=== PATIENT | female | born 1990 | race Caucasian/White ===

== ENCOUNTER 2018-11-25 10:15 | Inpatient (IN) | payer BC ==
[~2018-11-25 10:15] MED LIST: Bupivacaine 0.25% HCL 30 ML VIAL ONE; Bupivacaine/Epinephrine 0.25% 30 ML VIAL ONE; Lidocaine 2% MPF 10 ML AMP (For Epidural Use) ONE
[2018-11-25 11:01] VITALS: BMI 39.4
[2018-11-25] MEDS ORDERED: Butorphanol Tartrate 1 MG/ML VIAL SLOW IVP PRN (11:12)
[2018-11-25] MEDS ORDERED: Ondansetron PF 4 MG/2 ML Vial IVP PRN ×2 (11:12→16:10)
[2018-11-25] MEDS ORDERED: Docusate 100 MG CAP PO PRN (11:12)
[2018-11-25] MEDS ORDERED: NS / Oxytocin 40 units/1000ml 1,000 ML IV PRN (11:12)
[2018-11-25] MEDS ORDERED: Promethazine HCl 25 MG/ML VIAL IM PRN ×2 (11:12→16:10)
[2018-11-25] MEDS ORDERED: Acetaminophen 500 MG TAB PO PRN (11:12)
[2018-11-25] MEDS ORDERED: NS w/ Oxytocin 10 units 500 ML IV SCH ×2 (11:15)
[2018-11-25] MEDS: Lactated Ringer's 1,000 ML IV SCH ×3 (11:18→22:39)
[2018-11-25] MEDS ORDERED: HYDROcodone/Acetaminophen 5/325 mg Tablet PO PRN ×2 (11:30)
[2018-11-25] MEDS ORDERED: Lidocaine 1% (PF) 30 ML VIAL SC PRN (11:30)
[2018-11-25] MEDS ORDERED: Ibuprofen 800 MG TAB PO PRN (11:30)
[2018-11-25] MEDS ORDERED: Misoprostol 200 MCG TAB PR PRN (11:30)
[2018-11-25] MEDS ORDERED: Meperidine HCl/PF 25 MG/ML VIAL IM/IV PRN (11:30)
[2018-11-25 11:39] LABS: Hemoglobin 12.3 g/dL (12.0-16.0); Mean Corpuscular HGB CONC 33.3 g/dL (32.0-36.0); Mean Corpuscular Hemoglobin 28.6 pg (27.0-31.0); Mean Corpuscular Volume 85.9 fL (78.0-98.0); Mean Platelet Volume 8.3 fL (7.4-10.4); Platelet Count 279 thou/uL (130-400); RBC Distribution Width 15.1 % (11.5-14.5); White Blood Cell (WBC) Count 10.6 thou/uL (4.8-10.8)
[2018-11-25] MEDS ORDERED: NS w/ Oxytocin 10 units 500 ML ONE (11:45)
[2018-11-25 12:21] LABS: HBSAg Index 0.34 S/CO (0-0.99); Hep B Surf Ag Non-Reactive S/CO (NonReactive); Syphilis Antibody Nonreactive (Nonreactive); Syphilis Antibody Index 0.05 S/CO (<1.00 Non-Reactive)
[2018-11-25] MEDS ORDERED: Lidocaine 1.5%/Epinephrine 1:200,000 5 ML AMPUL IJ ONE (13:09)
[2018-11-25] MEDS ORDERED: Fentanyl 4 mcg/Bup 0.1% Cadd 100 ML ONE ×2 (13:10→19:50)
[2018-11-25] MEDS ORDERED: ePHEDrine/0.9% NaCl/PF SYRINGE 50 mg/10 ml SLOW IVP PRN (16:10)
[2018-11-25] MEDS ORDERED: Lactated Ringer's 500 ML IV PRN (16:10)
[2018-11-25] MEDS ORDERED: Eucerin (Mineral Oil/Petrolatum,White) 30 gm Jar TOP PRN (16:10)
[2018-11-25] MEDS ORDERED: diphenhydrAMINE 50 MG/ML VIAL IVP PRN (16:10)
[2018-11-25] MEDS ORDERED: Naloxone HCl 0.4 mg/ml Vial IVP PRN ×2 (16:10)
[2018-11-25] MEDS ORDERED: Acetaminophen 325 MG TAB PO PRN (16:10)
[2018-11-25] MEDS ORDERED: Dexamethasone 20 MG/5 ML VIAL ONE (16:15)
[2018-11-25] MEDS ORDERED: Ondansetron PF 4 MG/2 ML Vial ONE ×2 (16:15→22:52)
[2018-11-25] MEDS ORDERED: Succinylcholine Chloride 20 MG/ML 10 ml SYRINGE FS ONE ×2 (16:15→22:52)
[2018-11-25] MEDS ORDERED: Ketorolac Tromethamine 30 MG/ML VIAL ONE ×2 (16:15→22:52)
[2018-11-25] MEDS ORDERED: ePHEDrine 50 MG/ML VIAL ONE (16:15)
[2018-11-25] MEDS ORDERED: PROPOFOL 200 MG/20 ML VIAL ONE (16:15)
[2018-11-25] MEDS ORDERED: Fentanyl 4 mcg/Bupivacaine 0.1% Cassette 100 ML EPIDURAL SCH (16:15)
[2018-11-25] MEDS ORDERED: Communication Order-Pharmacy FS SCH (16:15)
[2018-11-25] MEDS ORDERED: Bicitra 30 ML UDCUP ONE (22:30)
[2018-11-25] MEDS ORDERED: Lidocaine 2% 10 ML INJ ONE ×2 (22:32→22:52)
[2018-11-25] MEDS ORDERED: Fentanyl 100 MCG/2 ML VIAL ONE (22:52)
[2018-11-25] MEDS ORDERED: Dexamethasone 4 mg/ml Vial ONE (22:52)
[2018-11-25] MEDS ORDERED: PROPOFOL 20 ML ONE (22:52)
[2018-11-25] MEDS ORDERED: Oxytocin 10 UNITS/ML VIAL ONE ×2 (23:08→23:48)
[2018-11-25] MEDS ORDERED: MORPHINE ONE (23:15)
[2018-11-25] MEDS ORDERED: MORPHINE 5 MG/10 ML PF VIAL ONE (23:15)
[2018-11-25 23:21] LABS: Actual Bicarbonate (HCO3a) 25.2 mEq/L (22-28)
[2018-11-25 23:23] LABS: Actual Bicarbonate (HCO3v) 24 mEq/L (22-28); Base Excess -3.8 mEq/L (-2.0 to +3.0); pH (Cord, venous) 7.28 (7.32-7.43)
[2018-11-25] MEDS ORDERED: Methylergonovine 0.2 MG/ML VIAL ONE (23:24)
[2018-11-25] MEDS ORDERED: ePHEDrine/0.9% NaCl/PF SYRINGE 50 mg/10 ml ONE (23:27)
[2018-11-26] MEDS ORDERED: Eucerin (Mineral Oil/Petrolatum,White) 30 gm Jar TOP PRN (00:05)
[2018-11-26] MEDS ORDERED: diphenhydrAMINE 50 MG/ML VIAL IVP PRN ×2 (00:05)
[2018-11-26] MEDS ORDERED: L&D-Morphine 4 MG/ML VIAL SLOW IVP PRN (00:05)
[2018-11-26] MEDS ORDERED: Naloxone HCl 0.4 mg/ml Vial IVP PRN ×2 (00:05)
[2018-11-26] MEDS ORDERED: diphenhydrAMINE 50 MG/ML VIAL IM PRN (00:05)
[2018-11-26] MEDS ORDERED: Morphine CADD 1 MG/ML CADD IVPB PRN (00:05)
[2018-11-26] MEDS ORDERED: HYDROmorphone 2 MG/ML VIAL SLOW IVP PRN (00:05)
[2018-11-26] MEDS ORDERED: Ondansetron PF 4 MG/2 ML Vial IVP PRN ×3 (00:05→00:38)
[2018-11-26] MEDS ORDERED: diphenhydrAMINE 25 MG CAP PO PRN ×2 (00:05→00:38)
[2018-11-26] MEDS ORDERED: Promethazine HCl 25 MG SUPP PR PRN (00:05)
[2018-11-26] MEDS ORDERED: Zolpidem Tartrate 5 MG TAB PO PRN ×3 (00:05→00:51)
[2018-11-26] MEDS ORDERED: Ondansetron HCl/PF 4 MG/2 ML Vial IVP PRN (00:05)
[2018-11-26] MEDS ORDERED: Promethazine HCl 25 MG/ML VIAL IM PRN ×2 (00:05)
[2018-11-26] MEDS ORDERED: Naloxone HCl 0.4 mg/ml Vial IV PRN ×2 (00:05)
[2018-11-26] MEDS ORDERED: Meperidine HCl/PF 25 MG/ML VIAL SLOW IVP PRN (00:05)
[2018-11-26] MEDS ORDERED: Communication Order-Pharmacy FS SCH ×2 (00:15)
[2018-11-26] MEDS ORDERED: Bisacodyl 10 MG SUPP PR PRN (00:38)
[2018-11-26] MEDS ORDERED: Lanolin Ointment 7 GM TUBE TOP PRN (00:38)
[2018-11-26] MEDS ORDERED: Simethicone Chewable 80 MG TAB PO PRN (00:38)
[2018-11-26] MEDS ORDERED: HYDROcodone/Acetaminophen 5/325 mg Tablet PO PRN ×2 (00:38)
[2018-11-26] MEDS ORDERED: Misoprostol 200 MCG TAB PR PRN (00:38)
[2018-11-26] MEDS ORDERED: NS / Oxytocin 40 units/1000ml 1,000 ML IV SCH (00:45)
[2018-11-26] MEDS ORDERED: Lactated Ringer's 1,000 ML IV SCH (00:45)
[2018-11-26] MEDS: Ketorolac Tromethamine 30 MG/ML VIAL IVP PRN ×4 (01:41→19:25)
[2018-11-26] MEDS ORDERED: Methylergonovine 0.2 MG/ML VIAL IM SCH (02:30)
[2018-11-26] MEDS: Acetaminophen 325 MG TAB PO PRN (04:41)
[2018-11-26 07:55] LABS: Hemoglobin 10.1 g/dL (12.0-16.0); Mean Corpuscular HGB CONC 32.4 g/dL (32.0-36.0); Mean Corpuscular Hemoglobin 27.5 pg (27.0-31.0); Mean Corpuscular Volume 84.7 fL (78.0-98.0); Mean Platelet Volume 8.2 fL (7.4-10.4); Platelet Count 270 thou/uL (130-400); RBC Distribution Width 14.8 % (11.5-14.5); Red Blood Cell (RBC) Count 3.69 mill/uL (4.20-5.40); White Blood Cell (WBC) Count 18.1 thou/uL (4.8-10.8)
[2018-11-26] MEDS: Prenatal Vitamin 1 TAB PO SCH (08:52)
[2018-11-26] MEDS: Ferrous Sulfate 325 MG TAB PO SCH ×2 (08:53→21:13)
[2018-11-26] MEDS: Docusate Calcium (SURFAK) 240 MG CAP PO SCH ×2 (08:53→20:42)
[2018-11-26] MEDS ORDERED: Adacel (T-DAP) 0.5 ML SYRINGE IM ONE (09:00)
[2018-11-26] MEDS ORDERED: Sodium Chloride 0.9% 10 ML ONE ×3 (11:39→19:20)
[2018-11-26] MEDS: HYDROcodone/Acetaminophen 5/325 mg Tablet PO PRN ×3 (12:13→22:22)
[2018-11-27] MEDS: Ketorolac Tromethamine 30 MG/ML VIAL IVP PRN (00:56)
[2018-11-27] MEDS: Acetaminophen 325 MG TAB PO PRN (01:07)
[2018-11-27] MEDS: Ibuprofen 800 MG TAB PO SCH ×3 (05:45→22:09)
[2018-11-27] MEDS: Ferrous Sulfate 325 MG TAB PO SCH ×2 (07:30→19:43)
[2018-11-27] MEDS: Prenatal Vitamin 1 TAB PO SCH (08:53)
[2018-11-27] MEDS: Docusate Calcium (SURFAK) 240 MG CAP PO SCH ×2 (08:54→22:09)
[2018-11-27] MEDS: HYDROcodone/Acetaminophen 5/325 mg Tablet PO PRN ×2 (08:54→18:03)
[2018-11-28] MEDS: HYDROcodone/Acetaminophen 5/325 mg Tablet PO PRN ×2 (03:57→13:40)
[2018-11-28] MEDS: Ibuprofen 800 MG TAB PO SCH ×2 (06:25→13:39)
[2018-11-28] MEDS: Docusate Calcium (SURFAK) 240 MG CAP PO SCH (09:07)
[2018-11-28] MEDS: Prenatal Vitamin 1 TAB PO SCH (09:07)
[2018-11-28] MEDS: Ferrous Sulfate 325 MG TAB PO SCH (09:08)
[2018-11-28 09:24] VITALS: BP 112/65; TEMP 98.4
--- NOTE | 2018-11-28 19:21 | OP ---
DATE OF PROCEDURE: 11/26/2018 RESIDENT SURGEON: Shilpa Saenz DO. PREOPERATIVE DIAGNOSES: 1. Term intrauterine at 38 and 11/29's. 2. Arrest of descent. 3. Nonreassuring heart rate tracing. POSTOPERATIVE DIAGNOSES: 1. Term intrauterine at months. 2. Arrest of descent. 3. Nonreassuring heart rate tracing. 4. Cephalopelvic disproportion. PROCEDURE PERFORMED: Primary low transverse section. ANESTHESIA: 1. Epidural. 2. General endotracheal. FINDINGS: 1. Arrest of descent at +3 station with a minimal descent during a trial of vacuum. 2. Nonreassuring heart rate tracing with repetitive decelerations. 3. A vigorous male infant, 8 pounds 8 ounces, Apgars 8 and 9. 4. Normal uterus, tubes, and ovaries. 5. Cephalopelvic disproportion (CPD) with a narrow outlet, deep subpubic arch, prominent sacrum. COMPLICATIONS: None. SPECIMENS REMOVED: 1. Cord blood. 2. Cord gas. BLOOD LOSS: 800 to 900 mL. (QBL 335). HISTORY AND INDICATIONS: Ms. Sienna Wolf is a very pleasant, 27-year-old, white female, G1, P0, who presented to our office on the morning of 11/25/2018, for routine visit at 38 and 11/29's. She complained of clear discharge. She had SROM during examination, and Nitrazine was positive. She was sent to Labor and Delivery in early labor. At the time of admission, her cervix was noted to be 4 cm dilated, 80% effaced, and -2 station. She was started on Pitocin augmentation. She progressed throughout the afternoon and early evening to 8 cm dilation. She had slow progress from 8 cm to complete. On the evening of 11/25/2018, she subsequently progressed to complete dilation, complete effacement, and +2 to 3 station. She pushed for well over an hour. The baby was noted to be asynclitic in presentation. We discussed the possibility of a trial of vacuum-assisted vaginal delivery. The patient and her were counseled and consented, they agreed. At this point, she was beginning to notice significant pelvic and low back discomfort. I carefully applied the vacuum for an attempt at a low VAVD. We attempted with a pressure of 50 cm with 2 pushes, and there was no descent. After 2 contractions and 2 pushes, I did not feel like it was safe for the baby to continue an attempt at an operative delivery. We made a decision to proceed with primary . Surgical disclosures were signed and placed in the chart. Questions were answered to the patient and family's satisfaction. The patient continued to have significant discomfort with her epidural. She was taken to the back for primary as outlined. DESCRIPTION OF PROCEDURE: After consent and counseling and the patient was taken to the back, the nurse notified me that general anesthetic had been induced. This was performed with us not being in the room or scrubbed. No time-out was performed. Urgently, the patient was prepped and draped in usual sterile fashion for abdominal surgery. A Mustafa was already placed and noted to be draining clear urine. A Pfannenstiel incision was made and carried sharply to the fascia, which was also sharply incised. The midline was identified, and the rectus muscles were retracted laterally. The abdominoperitoneal cavity was entered with usual safeguards carried out. A retractor was placed, and a bladder flap was created on the vesicouterine peritoneum. A bladder blade was then placed. A low-transverse incision was made on the well-developed lower uterine segment. Upon entering the amniotic sac, a small amount of clear amniotic fluid was visualized. The infant was noted to be vertex presentation in the right occiput anterior position (VAHID). There were significant caput and molding noted. The head was disengaged from the pelvis. The head was then carefully delivered in an atraumatic fashion. Baby was bulb suctioned on the abdomen. Shoulders and body were then delivered in an atraumatic fashion. The cord was doubly clamped and cut. The was immediately handed to the Neonatology Team in attendance for the delivery. Time from incision to cord clamp and cut was approximately 60 seconds. The infant was a vigorous viable male weighing 8 pounds 8 ounces with Apgars of 8 and 9 obtained at one and five minutes respectively. Cord blood gas was obtained. The placenta was manually removed from the uterus. The uterus was exteriorized, and poor tone was noted. Vigorous manual massage was performed. The patient was also given a dose of Methergine to aid with tone and hemostasis. The low-transverse incision was closed with a running locking ligature of #1 chromic. A second imbricating layer was placed to facilitate strength and hemostasis. During closure, vigorous massage was continued. Good hemostasis was then obtained. The vesicouterine peritoneum was reapproximated to the lower segment for adhesion prevention. The vesicouterine peritoneum was reapproximated with a running ligature of 2-0 Monocryl suture. The incision was carefully inspected, and good hemostasis was noted. The posterior cul-de-sac and gutters were cleared of clot and fluid. The pelvis was carefully inspected after closure. The sacrum was noted to be extremely prominent with a narrow anterior-posterior diameter. As previously noted, the subpubic arch was narrow until the patient was completely dilated. She also was noted to have a deep subpubic arch. Diagnosis of cephalopelvic disproportion (CPD) was given. Seprafilm was then applied to the low-transverse incision and the anterior aspect of the uterus for further adhesion prevention. The uterus was returned to the abdomen. Good tone and hemostasis were appreciated. Laps, sponge, and needle counts were correct. The peritoneum was closed with a running ligature of 2-0 Vicryl suture. The rectus muscles were reapproximated in the midline. The fascia was then closed with 2 ligatures of 0 Vicryl suture, which were tied in the midline. Good fascial integrity was appreciated. The incision was irrigated with copious amount of warm normal saline. The subcutaneous tissue was closed with interrupted ligatures of 2-0 plain. The skin was then closed with a subcuticular stitch of 4-0 Monocryl and dressed with Dermabond. Lap, sponge, and needle counts were correct x3. Estimated blood loss during the surgical procedure was approximately 900 mL. QBL performed by the nurse was 335 mL, which was questioned. The patient was awakened, extubated, and taken to the postanesthesia care unit in good condition. Immediately following the surgery, the patient and her family were made aware of the surgical procedure and operative findings. During the debriefing, we discussed in detail the importance of physician presence prior to induction of general anesthetic and a team time-out prior to general anesthesia. The team verbalized understanding. Questions were answered to the patient and family's satisfaction. Mother and baby were doing well postoperatively. Job ID: [id number]
== END 2018-11-28 15:00 | disposition home or self-care (01) | DRG 788 ==
LOC: L&D 10:15 → UNDOADMIN 10:15 → 3SE 11-26 03:24
PROVIDERS: ADMIT Obstetrics & Gynecology; ATTEND Obstetrics & Gynecology
PROC: 10D00Z1 Extraction of Products of Conception, Low, Open Approach (ICD-10-PCS; principal; 2018-11-26)
DX: O76 Abnormality in fetal heart rate and rhythm complicating labor and delivery (principal); O34.211 Maternal care for low transverse scar from previous cesarean delivery; O65.9 Obstructed labor due to maternal pelvic abnormality, unspecified; O32.4XX0 Maternal care for high head at term, not applicable or unspecified; Z3A.38 38 weeks gestation of pregnancy; Z37.0 Single live birth; O66.5 Attempted application of vacuum extractor and forceps
CPT/HCPCS: 36415; 51702; 82805; 85027; 86780; 86850; 86900; 86901; 87340; J1100; J1885; J2001; J2210; J2270; J2274; J2405; J2590; J2704; J3010; J3490; S0020